=== PATIENT | male | born 1990 | race Caucasian/White ===

== ENCOUNTER 2018-03-21 21:09 | Emergency (ER) | payer BC ==
[~2018-03-21] VITALS: Ht 193 cm; Wt 109.1 kg
[2018-03-21 21:09] VITALS: TEMP 98.4
[~2018-03-21 21:09] MED LIST: LORTAB ELIX0.5 MG/ML PO; NORCO 325 MG-51 TAB PO; VALTREX1 GM PO; ZOVIRAX800 MG PO
[2018-03-21] MEDS ORDERED: CLOMID50 MG (21:38)
[2018-03-21 22:47] VITALS: BP 144/96; PULSE 95
== END 2018-03-21 23:00 | disposition short-term general hospital (02) ==
LOC: COL.ER 21:09
DX: T22.132A Burn of first degree of left upper arm, initial encounter (principal); T22.131A Burn of first degree of right upper arm, initial encounter; T20.112A Burn of first degree of left ear [any part, except ear drum], initial encounter; T20.111A Burn of first degree of right ear [any part, except ear drum], initial encounter; T20.13XA Burn of first degree of chin, initial encounter; T26.02XA Burn of left eyelid and periocular area, initial encounter; T26.01XA Burn of right eyelid and periocular area, initial encounter; T22.012A Burn of unspecified degree of left forearm, initial encounter; T22.011A Burn of unspecified degree of right forearm, initial encounter; T23.002A Burn of unspecified degree of left hand, unspecified site, initial encounter; T23.001A Burn of unspecified degree of right hand, unspecified site, initial encounter; T23.042A Burn of unspecified degree of multiple left fingers (nail), including thumb, initial encounter; T23.041A Burn of unspecified degree of multiple right fingers (nail), including thumb, initial encounter; T21.01XA Burn of unspecified degree of chest wall, initial encounter; T24.022A Burn of unspecified degree of left knee, initial encounter; T24.021A Burn of unspecified degree of right knee, initial encounter; T25.022A Burn of unspecified degree of left foot, initial encounter; T25.021A Burn of unspecified degree of right foot, initial encounter; X04.XXXA Exposure to ignition of highly flammable material, initial encounter; Y92.009 Unspecified place in unspecified non-institutional (private) residence as the place of occurrence of the external cause
CPT/HCPCS: J1170; J1885; J7030